=== PATIENT | male | born 1965 | race African-American/Black ===

== ENCOUNTER 2018-05-05 09:14 | Inpatient (IN) | payer OTHER ==
[2018-05-05 09:47] VITALS: BMI 28.8
--- NOTE | 2018-05-05 11:37 | HP ---
COWS - Scale Resting Pulse: 1= [place] 81-100 Restless Observation: 0= Sits Still Pupil Size: 0= Normal to Room Light Bone or Joint Aches: 1= Mild Discomfort Runny Nose/ Eye Tearin= Runny Nose/Eyes GI Upset > 30mins: 0= None Tremor Observation: 0= None Yawning Observation: 0= None Anxiety or Irritability: 0= None CIWA Score - CIWA Score Muscle Tremors: None Anxiety: 0-No Anxiety, at Ease Agitation: 0-Normal Activity Paroxysmal Sweats: No Perspiration Orientation: 0-Oriented Tacttile Disturbances: 0-None Auditory Disturbances: 0-None Visual Disturbances: 0-None Headache: 0-None Present Admission ROS BHS - HPI Chief Complaint: pt here requesting detox from heroin use , reports 2 bundles/day denies ivdu , has been using > 20 years , prior detox x 2 , most recently 10 yrs ago . latest use yesterday . etoh use : 2 x 40 oz /day , reports tremors if not drinking, starts drinking early in the morning, denies RIGOBERTO , seizures , falls javier 0.000 - latest use yesterday claims tremors denies other illicits tobacco : /2 ppd requesting nrt w/ gum . pmhx : denies pshx : denies meds : denies allergies : nkda Allergies/Adverse Reactions: Allergies Allergy/AdvReac Type Severity Reaction Status Date / Time No Known Allergies Allergy Verified 05/05/18 09:53 - Ebola screening Have you traveled outside of the country in the last 21 days: No Have you had contact with anyone from an Ebola affected area: No Have you been sick,other than usual withdrawal symptoms: No Do you have a fever: No Patient History - Patient Medical History Hx Asthma: No Hx Chronic Obstructive Pulmonary Disease (COPD): No Hx Cardiac Disorders: No Hx Hypertension: No Hx Seizures: No Hx Diabetes: No Hx Gastrointestinal Disorders: No Hx Genitourinary Disorders: No Hx Sexually Transmitted Disorders: No Hx Renal Disease (ESRD): No Hx Depression: No Hx Suicide Attempt: No Hx Schizophrenia: No - Patient Surgical History Past Surgical History: No Hx Neurologic Surgery: No Hx Cataract Extraction: No Hx Cardiac Surgery: No Hx Lung Surgery: No Hx Breast Surgery: No Hx Breast Biopsy: No Hx Abdominal Surgery: No Hx Appendectomy: No Hx Cholecystectomy: No Hx Genitourinary Surgery: No Hx Section: No Hx Orthopedic Surgery: No Anesthesia Reaction: No - PPD History Previous Implant?: Yes Documented Results: Negative w/o proof - Smoking Cessation Smoking history: Current every day smoker Have you smoked in the past 12 months: Yes Aproximately how many cigarettes per day: 10 Hx Chewing Tobacco Use: No Initiated information on smoking cessation: No - Substances Abused Alcohol Route: Oral Frequency: Daily Amount used: 2 40 ounces of beer Age of first use: 16 Date of Last Use: 05/04/18 Heroin Route: Inhalation Frequency: Daily Amount used: 20 bags Age of first use: 16 Date of Last Use: 05/04/18 Family Disease History - Family Disease History Family History: Denies Admission Physical Exam S - Vital Signs Vital Signs: Vital Signs - 24 hr 05/05/18 09:43 Temperature 98.7 F Pulse Rate 88 Respiratory 20 Rate Blood Pressure 139/87 - Physical General Appearance: Yes: Within Normal Limits, No Apparent Distress, Nourished, Disheveled HEENTM: Yes: Within Normal Limits, EOMI, Hearing grossly Normal, Normal ENT Inspection, Normocephalic, Normal Voice, MICHAEL, Pharynx Normal, Tm's normal, Other (left ear w/ cerumen) Respiratory: Yes: Within Normal Limits, Chest Non-Tender, Lungs Clear, Normal Breath Sounds, No Respiratory Distress, No Accessory Muscle Use Neck: Yes: Within Normal Limits, No masses,lesions,Nodules, Trachea in good position Breast: Yes: Breast Exam Deferred Cardiology: Yes: Within Normal Limits, Regular Rhythm, Regular Rate Abdominal: Yes: Within Normal Limits, Normal Bowel Sounds, Non Tender, Flat, Soft Genitourinary: Yes: Within Normal Limits. No: Burning, Frequency, Hesitency, Itiching, Uregency, Dribblimg, Incontinient, Retention, Anuria, Dysuria, Hematuria, Nocturia, Oliguria, Polyuria, Penial Discharge, Scrotal Edema, Vaginal Discharge, Yeast Infection, Other, Pain Back: Yes: Within Normal Limits, Normal Inspection Musculoskeletal: Yes: Within Normal Limits, full range of Motion, Gait Steady Extremities: Yes: Within Normal Limits, Normal Capillary Refill, Normal Inspection, Normal Range of Motion, Non-Tender Neurological: Yes: Within Normal Limits, Fully Oriented, Alert, Motor Strength 5 /5, Normal Mood/Affect, Normal Response Integumentary: Yes: Within Normal Limits, Normal Color, Dry, Warm Lymphatic: Yes: Within Normal Limits Cleared for Admission S - Detox or Rehab [facility] Level of Care: Medically Managed Detox Regimen/Protocol: Methadone/Valium [facility] Breath Alcohol Content Breath Alcohol Content: 0 Urine Drug Screen - Results Drug Screen Negative: No Urine Drug Screen Results: OPI-Opiates
[2018-05-05] MEDS ORDERED: MAGNESIUM CITRATE 300 ML BOTTLE PO PRN (11:39)
[2018-05-05] MEDS ORDERED: ACETAMINOPHEN 325 MG TABLET (FP) PO PRN (11:39)
[2018-05-05] MEDS ORDERED: MAGNESIUM HYDROX 2400MG/30ML ORAL SUSPENSION 30 ML CUP PO PRN (11:39)
[2018-05-05] MEDS ORDERED: IBUPROFEN 400 MG TABLET (FP) PO PRN (11:39)
[2018-05-05] MEDS ORDERED: MAG HYDROX/AL HYDROX/SIMETH 30 ML UNIT-DOSE CUP PO PRN (11:39)
[2018-05-05] MEDS ORDERED: cloNIDine HCL 0.1 MG TABLET PO PRN (11:49)
[2018-05-05] MEDS ORDERED: METHADONE HCL 10 MG TABLET (FOR DETOX USE ONLY) PO ONE ×2 (12:25→23:00)
[2018-05-05] MEDS: diazePAM 5 MG TABLET PO SCH ×2 (14:26→22:11)
--- NOTE | 2018-05-05 16:45 | EKG ---
Test Reason : Blood Pressure : / mmHG Vent. Rate : 062 BPM Atrial Rate : 062 BPM P-R Int : 128 ms QRS Dur : 086 ms QT Int : 428 ms P-R-T Axes : 032 071 062 degrees QTc Int : 434 ms NORMAL SINUS RHYTHM VOLTAGE CRITERIA FOR LEFT VENTRICULAR HYPERTROPHY ABNORMAL ECG NO PREVIOUS ECGS AVAILABLE Confirmed by Cesar Cortez ([id number]) on 05/05/2018 4:44:42 PM Referred By: Confirmed By:Cesar Cortez
[2018-05-05] MEDS: NICOTINE POLACRILEX 2 MG GUM BUC PRN (17:14)
[2018-05-05] MEDS ORDERED: MELATONIN 5 MG TABLETS PO PRN (22:00)
[2018-05-05] MEDS: THIAMINE HCL 100 MG TABLET (FP) PO SCH (22:11)
[2018-05-06] MEDS: diazePAM 5 MG TABLET PO SCH ×3 (05:48→22:24)
[2018-05-06] MEDS: NICOTINE POLACRILEX 2 MG GUM BUC PRN ×4 (08:39→21:27)
[2018-05-06] MEDS ORDERED: PRENATAL VITAMINS W/ FOLIC ACID TABLET (FP) PO SCH (10:00)
[2018-05-06] MEDS ORDERED: METHADONE HCL 10 MG TABLET (FOR DETOX USE ONLY) PO SCH (10:00)
[2018-05-06 10:16] LABS: HEMATOCRIT 46.3 % (35.4-49); HEMOGLOBIN 15.2 GM/dL (11.7-16.9); MCH 31.4 pg (25.7-33.7); MCHC 32.8 g/dl (32.0-35.9); MEAN CELL VOLUME 95.8 fl (80-96); PLATELET COUNT 341 K/MM3 (134-434); RBC 4.84 M/mm3 (4.00-5.60); RDW 13.9 % (11.9-15.9); WHITE BLOOD COUNT 12.3 K/mm3 (4.0-10.0)
--- NOTE | 2018-05-06 10:35 | PN ---
S CIWA - CIWA Score Nausea/Vomitin-No Nausea/No Vomiting Muscle Tremors: 4-Moderate,w/Arms Extend Anxiety: 4-Mod. Anxious/Guarded Agitation: 4-Moderately Restless Paroxysmal Sweats: 1-Minimal Palms Moist Orientation: 0-Oriented Tacttile Disturbances: 0-None Auditory Disturbances: 0-None Visual Disturbances: 0-None Headache: 0-None Present CIWA-Ar Total Score: 13 BHS COWS - Scale Resting Pulse: 0= [place] 80 or Below Sweatin= Chills/Flushing Restless Observation: 3= Extraneous Movement Pupil Size: 2= Moderately Dilated Bone or Joint Aches: 4=Acute Joint/Muscle Pain Runny Nose/ Eye Tearin= None GI Upset > 30mins: 0= None Tremor Observation of Outstretched Hands: 2= Slight Tremor Visible Yawning Observation: 1= 1-2x During Session Anxiety or Irritability: 2=Irritable/Anxious Goose Flesh Skin: 0=Smooth Skin COWS Score: 15 BHS Progress Note (SOAP) Subjective: PT C/O ANXIETY,TREMORS,BODY ACHES, RESTLESSNESS, FATIGUE. Objective: 05/06/18 10:35 Vital Signs 05/06/18 05/06/18 05/06/18 03:30 06:54 09:21 Temperature 97.9 F 97.2 F L Pulse Rate 78 78 Respiratory 18 18 18 Rate Blood Pressure 142/95 137/89 Laboratory Tests 05/06/18 06:00 WBC 12.3 H RBC 4.84 Hgb 15.2 Hct 46.3 MCV 95.8 MCH 31.4 MCHC 32.8 RDW 13.9 Plt Count 341 MPV 8.0 Assessment: 05/06/18 10:35 WITHDRAWAL SX Plan: CONTINUE DETOX
[2018-05-06 10:42] LABS: CHLORIDE 103 mmol/L (98-107); POTASSIUM 3.8 mmol/L (3.5-5.1); SODIUM 139 mmol/L (136-145)
[2018-05-06 11:20] LABS: ALBUMIN 4.3 g/dl (3.4-5.0); ALK PHOS 80 U/L (45-117); ANION GAP 9 MMOL/L (8-16); BILIRUBIN,TOTAL 0.7 mg/dL (0.2-1); BLOOD UREA NITROGEN 11 mg/dL (7-18); CALCIUM 9.8 mg/dL (8.5-10.1); CO2 27 mmol/L (21-32); CREATININE 1.1 mg/dL (0.55-1.3); GLUCOSE,RANDOM 94 mg/dL (74-106); SGOT/AST 16 U/L (15-37); SGPT/ALT 26 U/L (13-61); TOT PROT 8.4 g/dl (6.4-8.2)
[2018-05-06] MEDS: THIAMINE HCL 100 MG TABLET (FP) PO SCH (22:23)
[2018-05-07] MEDS ORDERED: METHADONE HCL 5 MG TABLET (FOR DETOX USE ONLY) PO SCH (06:00)
[2018-05-07 06:14] VITALS: BP 142/96; PULSE 73; TEMP 97.9
[2018-05-07] MEDS ORDERED: diazePAM 5 MG TABLET PO SCH (10:00)
--- NOTE | 2018-05-07 10:12 | PN ---
[facility] Progress Note Note: PT DECLINED TO CONTINUE WITH DETOX AND WANTS TO LEAVE [place]. ALL EFFORTS TO ENCOURAGE TREATMENT FAILED. PT IS ALERT O X 3. NAD. REPORTS "I DON'T HAVE A PRIMARY DOCTOR AND I DON'T GO TO THE DOCTOR". BUT STATES [facility] IS CLOSE BY HIM WHERE HE CAN GO IF NEEDED. Vital Signs 05/07/18 05/07/18 03:30 06:14 Temperature 97.9 F Pulse Rate 73 Respiratory 18 18 Rate Blood Pressure 142/96 Laboratory Tests 05/06/18 05/06/18 05/06/18 06:00 06:00 06:00 WBC 12.3 H RBC 4.84 Hgb 15.2 Hct 46.3 MCV 95.8 MCH 31.4 MCHC 32.8 RDW 13.9 Plt Count 341 MPV 8.0 Sodium 139 Potassium 3.8 Chloride 103 Carbon Dioxide 27 Anion Gap 9 BUN 11 Creatinine 1.1 Creat Clearance w eGFR > 60 Random Glucose 94 Calcium 9.8 Total Bilirubin 0.7 AST 16 ALT 26 Alkaline Phosphatase 80 Total Protein 8.4 H Albumin 4.3 RPR Titer Nonreactive PLAN: PT SIGNED OUT AMA
--- NOTE | 2018-05-07 10:14 | DS ---
[facility] Detox Discharge Summary Admission Date: 05/05/18 Discharge Date: 05/07/18 - History Present History: Alcohol Dependence, Opioid Dependence Additional Comments: PT DECLINED TO CONTINUE WITH DETOX FOR PERSONAL REASONS. ALERT O X 3. NAD. FOLLOW UP AT [facility] NEEDED FOR MEDICAL MANAGEMENT. Pertinent Past History: PLEASE SEE DX BELOW - Physical Exam Results Vital Signs: Vital Signs Temperature 97.9 F 05/07/18 06:14 Pulse Rate 73 05/07/18 06:14 Respiratory Rate 18 05/07/18 06:14 Blood Pressure 142/96 05/07/18 06:14 O2 Sat by Pulse Oximetry (%) Pertinent Admission Physical Exam Findings: WITHDRAWAL SX Laboratory Tests 05/06/18 05/06/18 05/06/18 06:00 06:00 06:00 WBC 12.3 H RBC 4.84 Hgb 15.2 Hct 46.3 MCV 95.8 MCH 31.4 MCHC 32.8 RDW 13.9 Plt Count 341 MPV 8.0 Sodium 139 Potassium 3.8 Chloride 103 Carbon Dioxide 27 Anion Gap 9 BUN 11 Creatinine 1.1 Creat Clearance w eGFR > 60 Random Glucose 94 Calcium 9.8 Total Bilirubin 0.7 AST 16 ALT 26 Alkaline Phosphatase 80 Total Protein 8.4 H Albumin 4.3 RPR Titer Nonreactive - Treatment Hospital Course: Discharged Condition Good - Medication Discharge Medications: Ambulatory Orders NK [No Known Home Medication] 05/05/18 - Diagnosis (1) Opioid dependence with withdrawal Status: Acute (2) Alcohol dependence with uncomplicated withdrawal Status: Acute (3) Nicotine dependence Status: Acute Qualifiers: Nicotine product type: cigarettes Substance use status: in withdrawal Qualified Code(s): F17.213 - Nicotine dependence, cigarettes, with withdrawal - AMA Did Patient Leave Against Medical Advice: Yes (AMA)
[2018-05-08] MEDS ORDERED: METHADONE HCL 10 MG TABLET (FOR DETOX USE ONLY) PO SCH (06:00)
[2018-05-09] MEDS ORDERED: METHADONE HCL 5 MG TABLET (FOR DETOX USE ONLY) PO SCH (06:00)
== END 2018-05-07 09:58 | disposition left against medical advice (07) | DRG 770 ==
LOC: YASAS 09:14 → Y3N 12:10
PROC: HZ2ZZZZ Detoxification Services for Substance Abuse Treatment (ICD-10-PCS; principal; 2018-05-05)
DX: F11.23 Opioid dependence with withdrawal (principal); F10.230 Alcohol dependence with withdrawal, uncomplicated; F17.213 Nicotine dependence, cigarettes, with withdrawal
CPT/HCPCS: 36415; 80053; 85027; 86593; 93005; 93010

== ENCOUNTER 2019-04-24 06:04 | Emergency (ER) | payer OTHER ==
[2019-04-24] MEDS ORDERED: NALOXONE HCL 0.4 MG/ML VIAL IVPUSH ONE (06:22)
[2019-04-24] MEDS ORDERED: SODIUM CHLORIDE 0.9% 500 ML INFUS.BAG IV ONE (06:23)
[2019-04-24] MEDS ORDERED: NALOXONE HCL 0.4 MG/ML VIAL ONE ×2 (06:31→07:18)
[2019-04-24 06:46] VITALS: BMI 34.3
[2019-04-24 07:03] LABS: ALBUMIN 4.1 g/dl (3.4-5.0); BASO % 0.2 % (0-2.0); BILIRUBIN,TOTAL 0.2 mg/dL (0.2-1); BLOOD UREA NITROGEN 11.7 mg/dL (7-18); CALCIUM 9.5 mg/dL (8.5-10.1); CREATININE 1.1 mg/dL (0.55-1.3); EOS % 0.3 % (0-4.5); HEMOGLOBIN 14.8 GM/dL (11.7-16.9); LYMPH % 10.6 % (8-40); MCH 32.1 pg (25.7-33.7); MCHC 33.6 g/dl (32.0-35.9); MEAN CELL VOLUME 95.4 fl (80-96); MEAN PLT VOLUME 7.2 fl (7.5-11.1); MONO % 4.3 % (3.8-10.2); NEUT % 84.6 % (42.8-82.8); PLATELET COUNT 293 K/MM3 (134-434); RBC 4.62 M/mm3 (4.00-5.60); RDW 14.1 % (11.9-15.9); TOT PROT 8.3 g/dl (6.4-8.2); WHITE BLOOD COUNT 14.4 K/mm3 (4.0-10.0)
--- NOTE | 2019-04-24 07:14 | PDOC ---
History of Present Illness - General Chief Complaint: Altered Mental Status Stated Complaint: ALTERED MENTAL STATUS History Source: Patient Exam Limitations: Unresponsive - History of Present Illness Initial Comments: Raman Mcfadden is a 54 yo M w a hx of multiple admissions to detox for heroin and alcohol who presents to the [facility] er [facility] unresponsive after his found him lying in the bathtub unresponsive. Patient was A&o x0 on admission to ED but did respond to sternal rub. When placed on monitor he was satting at 81% so we rapidly applied a 100% non-rebreather to the patient. We obtained IV access and sent off basic labs for the patient. We administered 0.4 mg of Narcan to the patient and he started to wake up and his O2 saturation went up to 100% on the non-rebreather mask. The patient was still confused and barely responsive but his oxygen saturation improved and he seemed to be protecting his airway. EMS was not able to provide any additional hx for the patient. Past History - Past Medical History Allergies/Adverse Reactions: Allergies Allergy/AdvReac Type Severity Reaction Status Date / Time No Known Allergies Allergy Verified 05/05/18 09:53 Home Medications: Ambulatory Orders NK [No Known Home Medication] 05/05/18 Asthma: No Cardiac Disorders: No COPD: No Diabetes: No GI Disorders: No Disorders: No HTN: No Kidney Stones: No Seizures: No - Surgical History Abdominal Surgery: No Appendectomy: No Cardiac Surgery: No Cholecystectomy: No Lung Surgery: No Neurologic Surgery: No Orthopedic Surgery: No - Reproductive History Testicular Surgery: No - Suicide/Smoking/Psychosocial Hx Smoking History: Unknown if ever smoked Have you smoked in the past 12 months: Yes Number of Cigarettes Smoked Daily: 10 Hx Alcohol Use: Yes Hx Substance Use Treatment: Yes ([facility] detox 2007) Review of Systems - Review of Systems Able to Perform ROS?: No (Unresponsive) *Physical Exam - Vital Signs Last Vital Signs Temp Pulse Resp BP Pulse Ox 97.4 F L 108 H 20 119/98 100 04/24/19 06:10 04/24/19 06:10 04/24/19 06:10 04/24/19 06:10 04/24/19 06:10 - Physical Exam General Appearance: Yes: Intoxicated HEENT: positive: MICHAEL (PINPOINT 1 MM PUPILS) Neck: positive: Supple Respiratory/Chest: positive: Lungs Clear, Normal Breath Sounds. negative: Crackles, Rhonchi, Stridor, Wheezing Cardiovascular: positive: Regular Rhythm, S1, S2, Tachycardia Vascular Pulses: Dorsalis-Pedis (R): 2+, Doralis-Pedis (L): 2+ Gastrointestinal/Abdominal: positive: Normal Bowel Sounds, Soft. negative: Distended, Guarding, Rebound Rectal Exam: positive: deferred Lymphatic: negative: Adenopathy Musculoskeletal: positive: Normal Inspection. negative: Decreased Range of Motion Extremity: positive: Normal Capillary Refill, Normal Inspection, Normal Range of Motion Integumentary: positive: Normal Color, Dry, Cold Neurologic: positive: Respond to painful stimul, Confused, Disoriented. negative: Normal Mood/Affect ED Treatment Course - LABORATORY CBC & Chemistry Diagram: 04/24/19 06:32 04/24/19 06:32 - ADDITIONAL ORDERS Additional order review: Laboratory Results 04/24/19 04/24/19 04/24/19 06:32 06:32 06:28 Sodium 139 Potassium 4.0 Chloride 102 Carbon Dioxide 25 Anion Gap 13 BUN 11.7 Creatinine 1.1 Est GFR (CKD-EPI)AfAm 86.52 Est GFR (CKD-EPI)NonAf 74.65 POC Glucometer 114 Random Glucose 104 Calcium 9.5 Total Bilirubin 0.2 AST 19 ALT 28 Alkaline Phosphatase 108 Creatine Kinase 133 Troponin I < 0.02 Total Protein 8.3 H Albumin 4.1 04/24/19 06:28 POC Glucometer 114 - RADIOLOGY Radiology Studies Ordered: Category Date Time Status CERVICAL SPINE CT W/O CONTR [CT] Stat CT Scan 04/24/19 06:[address] WITHOUT CONTRAST [CT] Stat CT Scan 04/24/19 06:18 Ordered - Medications Given in the ED: ED Medications Discontinued Medications Generic Name Dose Route Start Last Admin Trade Name Freq PRN Reason Stop Dose Admin Naloxone HCl 0.4 mg 04/24/19 06:22 04/24/19 06:42 Narcan - IVPUSH 04/24/19 06:23 0.4 mg ONCE ONE Administration Sodium Chloride 1,000 ml 04/24/19 06:23 04/24/19 06:42 Normal Saline - IV 04/24/19 06:24 1,000 ml ONCE ONE Administration Medical Decision Making - Medical Decision Making Raman Mcfadden is a 54 yo M w a hx of multiple admissions to detox for heroin and alcohol who presents to the [facility] er [facility] unresponsive after his found him lying in the bathtub unresponsive. Patient was A&o x0 on admission to ED but did respond to sternal rub. When placed on monitor he was satting at 81% so we rapidly applied a 100% non-rebreather to the patient. We obtained IV access and sent off basic labs for the patient. We administered 0.4 mg of Narcan to the patient and he started to wake up and his O2 saturation went up to 100% on the non-rebreather mask. The patient was still confused and barely responsive but his oxygen saturation improved and he seemed to be protecting his airway. EMS was not able to provide any additional hx for the patient. Vital Signs Temp Pulse Resp BP Pulse Ox 97.4 F L 108 H 20 119/98 100 04/24/19 06:10 04/24/19 06:10 04/24/19 06:10 04/24/19 06:10 04/24/19 06:10 DDx IBNLT: Heroin OD, alcohol intox, other substance usage Plan: IV, O2, Monitor, Labs, Urine, CXR, EKG, Head/neck CT, Narcan, re-assess. - Patient's sat went up after non-rebreather and narcan administration suggesting patient was OD'ed on Heroin - Patient will be signed out to the day team for further care and disposition. - Signed out patient to Dr. Anderson *DC/Admit/Observation/Transfer Diagnosis at time of Disposition: Unresponsive Heroin overdose Qualifiers: Encounter type: initial encounter Injury intent: undetermined intent Qualified Code(s): T40.1X4A - Poisoning by heroin, undetermined, initial encounter Altered mental status Qualifiers: Altered mental status type: unspecified Qualified Code(s): R41.82 - Altered mental status, unspecified - Referrals - Patient Instructions - Post Discharge Activity
[2019-04-24 07:27] LABS: INR 1.06 (0.83-1.09); PROTHROMBIN TIME (PATIENT) 12.5 SEC (9.7-13.0)
--- NOTE | 2019-04-24 07:27 | PDOC ---
*Physical Exam - Vital Signs Last Vital Signs Temp Pulse Resp BP Pulse Ox 97.4 F L 108 H 20 119/98 100 04/24/19 06:10 04/24/19 06:10 04/24/19 06:10 04/24/19 06:10 04/24/19 06:10 Heart Score/ECG Review - ECG Impressions Comment:: 04/24/19 09:24 Twelve-lead EKG was performed and reviewed by me. There is normal sinus rhythm with a rate of 127 The axis is normal. The intervals are normal. There is normal R wave progression There are no ST or T wave abnormalities. Impression: sinus tachycardia ED Treatment Course - LABORATORY CBC & Chemistry Diagram: 04/24/19 06:32 04/24/19 06:32 - ADDITIONAL ORDERS Additional order review: Laboratory Results 04/24/19 04/24/19 04/24/19 06:38 06:38 06:32 PTT (Actin FS) 32.9 Sodium 139 Potassium 4.0 Chloride 102 Carbon Dioxide 25 Anion Gap 13 BUN 11.7 Creatinine 1.1 Est GFR (CKD-EPI)AfAm 86.52 Est GFR (CKD-EPI)NonAf 74.65 POC Glucometer Random Glucose 104 Lactic Acid 2.8 H* Calcium 9.5 Total Bilirubin 0.2 AST 19 ALT 28 Alkaline Phosphatase 108 Creatine Kinase Troponin I Total Protein 8.3 H Albumin 4.1 04/24/19 04/24/19 06:32 06:28 PTT (Actin FS) Sodium Potassium Chloride Carbon Dioxide Anion Gap BUN Creatinine Est GFR (CKD-EPI)AfAm Est GFR (CKD-EPI)NonAf POC Glucometer 114 Random Glucose Lactic Acid Calcium Total Bilirubin AST ALT Alkaline Phosphatase Creatine Kinase 133 Troponin I < 0.02 Total Protein Albumin 04/24/19 04/24/19 06:32 06:28 RBC 4.62 MCV 95.4 MCHC 33.6 RDW 14.1 MPV 7.2 L Neutrophils % 84.6 H Lymphocytes % 10.6 Monocytes % 4.3 Eosinophils % 0.3 Basophils % 0.2 POC Glucometer 114 - Medications Given in the ED: ED Medications Discontinued Medications Generic Name Dose Route Start Last Admin Trade Name Freq PRN Reason Stop Dose Admin Naloxone HCl 0.4 mg 04/24/19 06:22 04/24/19 06:42 Narcan - IVPUSH 04/24/19 06:23 0.4 mg ONCE ONE Administration Sodium Chloride 1,000 ml 04/24/19 06:23 04/24/19 06:42 Normal Saline - IV 04/24/19 06:24 1,000 ml ONCE ONE Administration Medical Decision Making - Critical Care Time Total Critical Care Time (minutes): 45 Critical Care Statement: The care of this patient involved high complexity decision making to prevent further life threatening deterioration of the patient 's condition and/or to evaluate & treat vital organ system(s) failure or risk of failure. - Medical Decision Making 04/24/19 07:21 54y M hx presnted over night with EMS - was called by as pt was found in the restroom, found to be hypoxic, and tachy to 110, altered, with pin point pupils. Pt was given narcan by previous team with response. histy limited currently as pts pupils are again approx 2mm, pt is arousble bu lethagic. n osigns of head injury. awaiting CT head. will give pt another dose of narcan and erasess 04/24/19 07:37 pts HR at 110, given .4 narcan with immediate improvement of his respiratory rate and mental tatus. states he used heroin last night. denies using anyhting else. will conitnue to monitor 04/24/19 09:48 pts labs reviewed imaging reviewed pt doing well, has not required further narcan HR also improved - currently 101 saturation 96% on RA with RR of 19 will continue to monitor for metabolization of his drugs 04/24/19 16:46 pt awake, alert no further need for narcan doing well ate a sandwich will dc home I discussed the physical exam findings, ancillary test results and final diagnoses with the patient. I answered all of the patient's questions. The patient was satisfied with the care received and felt comfortable with the discharge plan and treatment plan. The patient will call their primary care physician within 24 hours to arrange follow-up and will return to the Emergency Department with any new, persistent or worsening symptoms. *DC/Admit/Observation/Transfer Diagnosis at time of Disposition: Unresponsive Heroin overdose Qualifiers: Encounter type: initial encounter Injury intent: undetermined intent Qualified Code(s): T40.1X4A - Poisoning by heroin, undetermined, initial encounter Altered mental status Qualifiers: Altered mental status type: unspecified Qualified Code(s): R41.82 - Altered mental status, unspecified - Discharge Dispostion Disposition: HOME Condition at time of disposition: Stable - Referrals Referrals: [facility] [place] [facility] [Provider Group] - Patient Instructions Printed Discharge Instructions: DI for Drug Overdose in Adults Additional Instructions: Discharge Instructions You were seen in the emergency department after a heroin overdose at home. You were given Narcan several times for slow breathing, and you were monitored in the ED until you were awake enough to go home. Continue taking your home medications as prescribed. DO NOT take heroin along with your methadone. This greatly increases your risk of overdose. Seek immediate medical care for worsening symptoms, any additional overdose, any fall or injury, or any other medical emergency. Make an appointment to follow up with primary care within the next 1-2 weeks. You have been given contact information for the [facility] if you need to establish care. - Post Discharge Activity
[2019-04-24 07:52] VITALS: TEMP 97.8
--- NOTE | 2019-04-24 07:57 | PDOC ---
*Physical Exam - Vital Signs Last Vital Signs Temp Pulse Resp BP Pulse Ox 97.4 F L 108 H 20 119/98 100 04/24/19 06:10 04/24/19 06:10 04/24/19 06:10 04/24/19 06:10 04/24/19 06:10 ED Treatment Course - LABORATORY CBC & Chemistry Diagram: 04/24/19 06:32 04/24/19 06:32 - ADDITIONAL ORDERS Additional order review: Laboratory Results 04/24/19 04/24/19 04/24/19 06:38 06:38 06:32 PT with INR INR PTT (Actin FS) 32.9 Sodium 139 Potassium 4.0 Chloride 102 Carbon Dioxide 25 Anion Gap 13 BUN 11.7 Creatinine 1.1 Est GFR (CKD-EPI)AfAm 86.52 Est GFR (CKD-EPI)NonAf 74.65 POC Glucometer Random Glucose 104 Lactic Acid 2.8 H* Calcium 9.5 Total Bilirubin 0.2 AST 19 ALT 28 Alkaline Phosphatase 108 Creatine Kinase Troponin I Total Protein 8.3 H Albumin 4.1 04/24/19 04/24/19 04/24/19 06:32 06:30 06:28 PT with INR 12.50 INR 1.06 PTT (Actin FS) Sodium Potassium Chloride Carbon Dioxide Anion Gap BUN Creatinine Est GFR (CKD-EPI)AfAm Est GFR (CKD-EPI)NonAf POC Glucometer 114 Random Glucose Lactic Acid Calcium Total Bilirubin AST ALT Alkaline Phosphatase Creatine Kinase 133 Troponin I < 0.02 Total Protein Albumin 04/24/19 04/24/19 06:32 06:28 RBC 4.62 MCV 95.4 MCHC 33.6 RDW 14.1 MPV 7.2 L Neutrophils % 84.6 H Lymphocytes % 10.6 Monocytes % 4.3 Eosinophils % 0.3 Basophils % 0.2 POC Glucometer 114 - Medications Given in the ED: ED Medications Discontinued Medications Generic Name Dose Route Start Last Admin Trade Name Freq PRN Reason Stop Dose Admin Naloxone HCl 0.4 mg 04/24/19 06:22 04/24/19 06:42 Narcan - IVPUSH 04/24/19 06:23 0.4 mg ONCE ONE Administration Sodium Chloride 1,000 ml 04/24/19 06:23 04/24/19 06:42 Normal Saline - IV 04/24/19 06:24 1,000 ml ONCE ONE Administration Medical Decision Making - Medical Decision Making 04/24/19 07:39 Sign out received from Dr Yates. Raman Mcfadden is a 54yo man BIBA after he was found unresponsive in a bathtub by his ; PMH is notable for multiple admissions for heroin and alcohol detox. Per the overnight team, he was given 0.4 narcan upon arrival due to pinpoint pupils and hypoxia. He became somewhat more arousable following the narcan, waking to sternal rub, but fell back asleep immediately after wakening. Labs were sent on arrival. - Labs reviewed. Notable for lactate 2.8; pt appears clinically dry and is tachycardic to the 130's. IVF running - UDS to be sent - CT head, CT c-spine to be completed - Additional 0.4 narcan given to assess response as pt was difficult to arouse. Became more alert, able to state that he took heroin at home. Denied any other substance use 04/24/19 09:13 - UDS positive for opiates and methadone - CT head, CT c-spine negative for acute pathology - Will continue to monitor 04/24/19 10:46 - Pt's stepdaughter at bedside. Not aware of any current opiate use, but notes that pt is on methadone. Also states that patient drinks "3 or 4" 24oz cans of beer per day - Alcohol level added to 6:30am labs as pt is still very somnolent and difficult to wake. HR now 98, RR 19, sats 98% 04/24/19 11:19 - Alcohol 29, likely not contributing to somnolence - Will continue to monitor until awake and alert enough to be discharged home 04/24/19 13:49 - Patient still very altered. Stood to urinate, speaking to staff but confused. Urinated onto floor. - Continue to monitor 04/24/19 15:36 - Patient arousable. Now giving appropriate answers. Reports that he has been using heroin "not too often" while on methadone, last used one week ago. He does not remember his overdose or coming to the hospital today - Given sandwich, juice. Will attempt to ambulate after eating. - D/c home if able to eat and ambulate Seen with Dr Paola Anderson PGY2 *DC/Admit/Observation/Transfer Diagnosis at time of Disposition: Unresponsive Heroin overdose Qualifiers: Encounter type: initial encounter Injury intent: undetermined intent Qualified Code(s): T40.1X4A - Poisoning by heroin, undetermined, initial encounter Altered mental status Qualifiers: Altered mental status type: unspecified Qualified Code(s): R41.82 - Altered mental status, unspecified - Discharge Dispostion Disposition: HOME Condition at time of disposition: Stable Decision to Admit order: No - Referrals Referrals: [facility] [place] [facility] [place] [Provider Group] - Patient Instructions Printed Discharge Instructions: DI for Drug Overdose in Adults Additional Instructions: Discharge Instructions You were seen in the emergency department after a heroin overdose at home. You were given Narcan several times for slow breathing, and you were monitored in the ED until you were awake enough to go home. Continue taking your home medications as prescribed. DO NOT take heroin along with your methadone. This greatly increases your risk of overdose. Seek immediate medical care for worsening symptoms, any additional overdose, any fall or injury, or any other medical emergency. Make an appointment to follow up with primary care within the next 1-2 weeks. You have been given contact information for the [facility] if you need to establish care. - Post Discharge Activity
[2019-04-24 08:28] LABS: COCAINE, UR NEGATIVE ng/ml (CUTOFF=300); PHENCYCLIDINE,URINE NEGATIVE ng/ml (CUTOFF=25); URINE AMPHETAMINES NEGATIVE ng/ml (CUTOFF=500); URINE BARBITURATES NEGATIVE ng/ml (CUTOFF=200); URINE BENZODIAZEPINES NEGATIVE ng/ml (CUTOFF=200)
[2019-04-24 08:29] LABS: PH,URINE 5.5 (5.0-8.0); URINE APPEARANCE Clear; URINE BILIRUBIN Negative (NEGATIVE); URINE COLOR Yellow; URINE GLUCOSE (UA) Negative (NEGATIVE); URINE KETONE Negative (NEGATIVE); URINE LEUK ESTERASE Negative (NEGATIVE); URINE NITRITE Negative (NEGATIVE); URINE PROTEIN Negative (NEGATIVE); URINE UROBILINOGEN 0.2 mg/dL (0.2-1.0)
[2019-04-24 08:32] LABS: METHADONE, UR POSITIVE ng/ml (CUTOFF=300); OPIATES, URI POSITIVE ng/ml (CUTOFF=300)
[2019-04-24] MEDS ORDERED: SODIUM CHLORIDE 1,000 ML IV ONE (13:23)
[2019-04-24 16:44] VITALS: BP 130/96; PULSE 94
--- NOTE | 2019-04-25 16:58 | EKG ---
Test Reason : Blood Pressure : / mmHG Vent. Rate : 127 BPM Atrial Rate : 127 BPM P-R Int : 116 ms QRS Dur : 084 ms QT Int : 284 ms P-R-T Axes : 042 066 067 degrees QTc Int : 412 ms POOR DATA QUALITY, INTERPRETATION MAY BE ADVERSELY AFFECTED SINUS TACHYCARDIA OTHERWISE NORMAL ECG WHEN COMPARED WITH ECG OF 05-MAY-2018 14:07, VENT. RATE HAS INCREASED BY 65 BPM Confirmed by PIPPA BRASWELL MD ([id number]) on 04/25/2019 4:57:54 PM Referred By: Confirmed By:PIPPA BRASWELL MD
--- NOTE | 2019-04-26 03:00 | PDOC ---
Attending Attestation - Resident Resident Name: Tacho Yates - ED Attending Attestation I have performed the following: I have examined & evaluated the patient, The case was reviewed & discussed with the resident, I agree w/resident's findings & plan - HPI HPI: 04/26/19 02:57 54 yo M w a hx of heroin and alcohol abuse, comes unresponsive found by . Patient responds to sternal rub. O2 sat on arrival 81%; with 100% NRB facemask his O2sat improves. We administered 0.4 mg of Narcan to the patient and he started to wake up. - Physicial Exam PE: 04/26/19 02:59 Agree with resident exam - Medical Decision Making 04/26/19 02:59 Pt will be signed out to the day ER team. All labs are pending. Pt is stable and protecting airway and breathing well.
== END 2019-04-24 17:19 | disposition home or self-care (01) ==
LOC: JER 06:04
PROC: 3E0337Z Introduction of Electrolytic and Water Balance Substance into Peripheral Vein, Percutaneous Approach (ICD-10-PCS; principal; 2019-04-24)
DX: T40.1X4A Poisoning by heroin, undetermined, initial encounter (principal); R40.4 Transient alteration of awareness; Y92.031 Bathroom in apartment as the place of occurrence of the external cause
CPT/HCPCS: 36415; 70450-TC; 71045-TC-FY; 72125-TC; 80053; 80307; 81003; 82550; 82962; 83605; 84484; 85025; 85610; 85730; 93005; 93010; 96360; 99284-25; J7030